=== PATIENT | female | born 1960 | race Caucasian/White ===

== ENCOUNTER 2019-09-08 13:35 | Day surgery (SDC) | payer OTHER ==
[~2019-09-08 13:35] MED LIST: SYNTHROID50 MCG PO
== END 2019-09-08 22:30 | disposition home or self-care (01) ==
LOC: CIR.AMB 13:35
DX: S42.231A 3-part fracture of surgical neck of right humerus, initial encounter for closed fracture (principal); S46.121A Laceration of muscle, fascia and tendon of long head of biceps, right arm, initial encounter; M75.121 Complete rotator cuff tear or rupture of right shoulder, not specified as traumatic